=== PATIENT | male | born 1990 | race Caucasian/White ===

== ENCOUNTER 2020-10-23 19:19 | Observation (INO) | payer OTHER ==
[~2020-10-23] VITALS: Ht 172.7 cm; Wt 112.1 kg
--- NOTE | ~2020-10-23 | CON ---
[address] [address] CONSULTATION Name: PETER BUTLER Room: [address] Elda#: [id number] Admission: 10/23/20 Attend Phys: Juan Miguel Rodrigues, Discharge: Date of : 89 Report #: [id number] THIS REPORT FOR: cc: Mauro Taveras MD, Gary E. MD ~ Jai Cintron MD [facility] DATE OF SERVICE: 10/24/2020 CARDIOLOGY CONSULTATION HISTORY OF PRESENT ILLNESS: The patient is a 29-year-old single white male who I was asked to see in the hospital today after he was noted to have elevated blood pressure. The patient has no previous history of heart disease. However, he is not very active at this time. He does note in the past when he has a physical examination, his blood pressure has been elevated. However, he has never been on high blood pressures before. However, he notes that 2 days ago, he was at home and took his blood pressure and it was apparently 220/160. He took it again yesterday and was also elevated. He then went to see his primary healthcare provider. His blood pressures over 200 systolic. He was told to drive to the Emergency Room. He is admitted for further evaluation and treatment. He denies a history of heart disease. Denies any chest pain, shortness of breath, palpitations, syncope, or peripheral edema. He denies recurrent headaches, sweating spells, diabetes, heart murmur. PAST MEDICAL AND HISTORY: He has had no surgical procedures. He has no history of diabetes, hyperlipidemia. MEDICATIONS: He is currently on no medications. ALLERGIES: He has no known drug allergies. FAMILY HISTORY: Both his father and mother has high blood pressure. His father also had coronary artery bypass surgery. SOCIAL HISTORY: He is single, works in a factory. Smokes half pack of cigarettes a day. Rarely drinks alcohol. He does drink caffeine frequently. No illicit drug use. REVIEW OF SYSTEMS: No history of stroke, asthma, liver disease or cancer. He does wear glasses. No chronic skin condition. PHYSICAL EXAMINATION: GENERAL: Revealed a young white male who appeared in no distress. VITAL SIGNS: Yesterday was 194/114, this morning was 158/100; [place] [address] CONSULTATION Name: PETER BUTLER Room: [address] Elda#: [id number] Admission: 10/23/20 Attend Phys: Juan Miguel Rodrigues, Discharge: Date of : 89 Report #: [id number] afebrile. HEENT: He was anicteric. Conjunctivae pink. Mucous membranes are moist. NECK: Veins were not distended. CHEST: Clear to auscultation. CARDIOVASCULAR: Regular rate and rhythm without murmurs. ABDOMEN: Soft. EXTREMITIES: Had no edema. Dorsalis pedis pulse 1+ bilaterally. SKIN: Cool and dry. NEUROLOGIC: Nonfocal. LABORATORY DATA: His ECG showed a sinus rhythm with an incomplete right bundle-branch block. His workup in the Emergency Room yesterday, he had a portable chest x-ray that showed normal heart size, clear lung vital. His lab work, his BUN is 15, creatinine 1.1. His liver function studies were normal. Troponin 0.06. White blood cell count 7.5, hemoglobin 16.6. His COVID antigen stat test was negative. IMPRESSION AND RECOMMENDATIONS: 1. Essential hypertension. No evidence of secondary causes. At this time, I think it is reasonable to discharge the patient on an JOZEF inhibitor and diuretic. Recommend exercise and sodium restriction. He will need a close followup. I will give him an appointment to see my nurse practitioner in a couple of weeks. 2. Tobacco abuse. By: [id number] Cintron MD, FACC /nt
[2020-10-23 19:39] VITALS: BP 218/131
--- NOTE | 2020-10-23 19:48 | NUR ---
PATIENT REPORTS THAT HIS MOTHER STRUGGLES WITH HYPERTENSION AND HIS FATHER HAS CAD.
[2020-10-23 19:50] LABS: ABSOLUTE EOSINOPHILS 0.1 thou/uL (0.0-0.7); ABSOLUTE LYMPHOCYTES 2.5 thou/uL (0.8-5.3); ABSOLUTE MONOCYTES 0.6 thou/uL (0.0-1.2); ABSOLUTE NEUTROPHILS 4.3 thou/uL (1.6-8.1); BASOPHILS 0.6 %; EOSINOPHILS 1.2 %; HEMATOCRIT 48.8 % (42.0-52.0); HEMOGLOBIN 16.6 gm/dL (14.0-18.0); LYMPHOCYTES 32.6 %; MCH 29.9 pg (26.0-34.0); MCHC 34.1 g/dL (28.0-37.0); MCV 87.8 fL (80.0-100.0); MPV 8.8 fl. (7.2-11.1); NUCLEATED RBCS 0 /100WBC; PLATELET COUNT* 212 thou/uL (150-400); POLYS 57.6 %; RBC 5.56 mil/uL (4.50-6.00); RDW-CV 13.2 % (10.5-14.5); WBC 7.5 thou/uL (4.0-11.0)
[2020-10-23 20:00] LABS: ALBUMIN 3.9 g/dL (3.4-5.0); CALCIUM 8.5 mg/dL (8.5-10.1); CREATININE 1.1 mg/dL (0.6-1.3); POTASSIUM 4.1 mmol/L (3.5-5.1); TOTAL BILIRUBIN 0.4 mg/dL (<0.1-1.0); TOTAL PROTEIN 7.8 g/dL (6.4-8.2)
[2020-10-23 20:02] LABS: INR 0.9; PROTIME 9.9 Seconds (9.20-11.50)
[2020-10-23 22:40] VITALS: BP 158/104
[2020-10-24 04:00] VITALS: BP 168/95
--- NOTE | 2020-10-24 06:47 | NUR ---
NO ACUTE CHANGES THROUGHOUT SHIFT. SEE CHARTING FOR DETAILS.
[2020-10-24] MEDS ORDERED: LISINOPRIL10 MG PO (09:00)
[2020-10-24] MEDS ORDERED: HYDROCHLOROTHIA25 M1 PO (09:00)
[2020-10-24 09:24] VITALS: BP 141/90
--- NOTE | 2020-10-24 10:15 | EKG ---
[place] [address] ELECTROCARDIOGRAM REPORT Name: PETER BUTLER Room: [address]R.#: [id number] Admission: 10/23/20 Attend Phys: Juan Miguel Wallace Discharge: Date of : 89 Date of Service: 10/23/201928 Report #: [id number] THIS REPORT FOR: //name// [facility] ED Test Date: 2020-10-23 Test Time: 19:29:50 Pat Name: PETER BUTLER Department: Room: [facility] Gender: M Manager Technical Sales: AVE : 1990 Requested By: Madhuri Busch Order Number: [id number] MD: Jai Cintron Measurements Intervals [place] Rate: 70 P: AR: QRS: -35 QRSD: 110 T: 60 QT: 400 QTc: 432 Interpretive Statements sinus rhythm Left axis deviation Baseline wander in lead(s) V2,V3,V4 No previous ECG available for comparison Electronically Signed On 10-24-2020 10:15:09 CDT by Jai Cintron [email or web address] <ELECTRONICALLY SIGNED> By: Jai Cintron MD, FAC 10/24/20 1015 28 28 Jai Citnron MD, [facility] /EPI
--- NOTE | 2020-10-24 10:18 | NUR ---
CM SPOKE TO THE PT TO DISCUSS CM ASSESSMENT. PT A&O, INDEPENDENT WITH ADL'S, ACTIVE AND WORKS. PT USES 0 DME. NO CM D/C PLANNING NEEDS ANTICIPATED. PLAN FOR PT TO D/C HOME TODAY WITH SELF-CARE. CM WILL REMAIN AVAILABLE TO ASSIST AND FOLLOW NEEDED.
--- NOTE | 2020-10-24 12:51 | NUR ---
ASSUMED PT CARE AT 0730. PT IS A&OX4. PLEASANT AND RESPONDS READILY. PT STATES HE FEELS MUCH BETTER TODAY.ASSESSMENT COMPLETED, MEDICATIONS ADMINISTERED ORDERED. PT DENIES ANY CONCERNS AT THIS TIME.NEW ORDERS RECIEVED TO DISCHARGE PT TO HOME. MOTHER HERE VISITING AND TO TRANSPORT PT TO HOME. DISCHARGE INSTRUCTIONS REVIEWED WITH PT, EDUCATED PT AND SENT MATERIAL WITH PT ON HTN AND HOW TO EFFECTIVELY TAKE AND MONITOR BP. PT VERBALIZED UNDERSTANDING. HEART MONITOR REMOVED AND IV'S DC'D. NURSING STAFF ESCORTED PT TO MAIN ENTRANCE APPROX 1300.
== END 2020-10-24 13:35 | disposition home or self-care (01) ==
LOC: M.ERS 19:19 → M.TBA-ER 22:17 → M.2W 22:17
PROVIDERS: Personal Emergency Response Attendant; ADMIT Family Medicine; ATTEND Family Medicine
DX: I16.0 Hypertensive urgency (principal); R55 Syncope and collapse; E66.9 Obesity, unspecified; F17.210 Nicotine dependence, cigarettes, uncomplicated; E11.9 Type 2 diabetes mellitus without complications; E78.5 Hyperlipidemia, unspecified; Z20.822 Contact with and (suspected) exposure to COVID-19; Z82.49 Family history of ischemic heart disease and other diseases of the circulatory system